=== PATIENT | female | born 1985 | race Caucasian/White ===

== ENCOUNTER → 2017-05-05 | Outpatient (CLI) | payer OTHER, MEDICAID ==
[~2017-05-05] MED LIST: LEVEMIR SQ; MOTRIN 600600 MG/TAB PO; PERCOCET 325 MG1 TA2 PO; PRENATAL1 TA7 PO; TUMS500 MG
== END ==
LOC: MC.RAD 14:03
DX: N60.02 Solitary cyst of left breast (principal); N64.4 Mastodynia

== ENCOUNTER 2017-05-23 12:23 | Day surgery (SDC) | payer OTHER, MEDICAID ==
[~2017-05-23] VITALS: Ht 154.9 cm; Wt 85.1 kg
[2017-05-23 13:34] VITALS: BP 130/74; PULSE 85; TEMP 97.8
[2017-05-23 17:17] VITALS: BP 110/72; PULSE 91; TEMP 97.6
[2017-05-23] MEDS ORDERED: NORCO 325 MG-51 TAB PO (17:22)
[2017-05-23] MEDS ORDERED: MOTRIN 600600 MG/TAB PO (17:22)
[2017-05-23] MEDS ORDERED: COLACE 100100 MG/CAP PO (17:22)
[2017-05-23 17:30] VITALS: BP 101/50; PULSE 84
[2017-05-23 17:45] VITALS: BP 102/72; PULSE 71
== END 2017-05-23 18:15 | disposition home or self-care (01) ==
LOC: SDCO 12:23
DX: N60.12 Diffuse cystic mastopathy of left breast (principal); N60.82 Other benign mammary dysplasias of left breast; Z68.35 Body mass index [BMI] 35.0-35.9, adult; Z88.6 Allergy status to analgesic agent
CPT/HCPCS: J0690; J1100; J1885; J2704; J3010; J7120